=== PATIENT | female | born 1945 | race Caucasian/White ===

== ENCOUNTER → 2017-07-11 | Day surgery (SDC) | payer BC ==
[~2017-07-11] MED LIST: COZAAR25 MG PO; GLUCOSAMINE & C1 CAP PO; GLUCOSAMINE CH1 EAC1 PO; HYDROXYZINE HCL25 M1 PO; LASIX20 MG PO; LEVOTHYROXINE100 MCG PO; LORCET PLUS 7.1 EACH PO; NAPROXEN PO; NEURONTIN300 MG PO; PROBIOTIC1 EAC2 PO; PROBIOTIC1 EAC3 PO; PROTONIX PO
--- NOTE | ~2017-07-11 | OR ---
Unit #: [id number] #: [id number] Patient: MAIA SOMMER [id number] [address] [address] [id number] O MR#: [id number] NAME: MAIA SOMMER ROOM: Date of Procedure: 07/11/2017 Admission Date: 07/11/2017 Surgeon: Doe Faustin M.D. : 1945 Attending Physician: Doe Faustin M.D. Referring Physician: Doe Faustin M.D. Primary Care Physician: Lauren Figueroa M.D. OPERATIVE REPORT PREOPERATIVE DIAGNOSIS Left midshaft humerus fracture. POSTOPERATIVE DIAGNOSIS Left midshaft humerus fracture. PROCEDURE PERFORMED Open reduction and internal fixation of left humerus fracture. IMPLANTS Synthes 10-hole 4.5 mm LCDC plate, narrow. PRODUCTION LINE SOLDERER Radha Kaiser APRN, RNFA. ANESTHESIA General with regional nerve block. ESTIMATED BLOOD LOSS 100 mL. COMPLICATIONS None apparent. DRAINS None. SPECIMENS None. INDICATIONS FOR PROCEDURE Ms. Sommer is a 72-year-old female with a left displaced midshaft humerus fracture. She failed a trial of conservative treatment with a Dotson brace. She had an incomplete reduction, but more so continued pain and inability to tolerate wearing the brace. We discussed open reduction and internal fixation as an alternative and she elected to proceed. The risks, benefits, and alternatives were reviewed. DESCRIPTION OF PROCEDURE The patient was identified in the preoperative holding area. The operative site was marked. Preoperative antibiotics were administered. A regional block was performed. The patient was brought to the operating Unit #: [id number] #: [id number] Patient: MAIA SOMMER room and placed supine on the operating table. A general anesthetic was induced. The patient was positioned supine on the operative table with the arm out laterally on a radiolucent hand table. The head of the bed was elevated slightly. An incision was made over the anterolateral aspect of the humerus. Dissection was carried down to the subcutaneous tissues. The cephalic vein was visualized medial or ulnar to our incision. Dissection was carried down to the biceps brachii itself. This was then elevated medially exposing the underlying brachialis. The brachialis was divided in-line with its muscle fibers in an internervous plane. Dissection proximally was carried up to the inferior portion of the deltopectoral interval. This was exposed and a portion of the pectoralis was released as was the portion of the deltoid. These were tagged for later repair. The fracture site was identified and the fracture edges were cleaned. Periosteum was removed only at the fracture edges to confirm reduction. The fracture was reduced with a large lobster-claw clamp and held in place while a lag screw was placed from the lateral to medial cortex. This was a 3.5 mm lag screw. A 2.0 mm K-wire was placed here as well. The clamps were then removed and a plate applied in a neutralization fashion anteriorly. An 8-hole plate was somewhat short. We elected for a longer 10-hole plate with better working length. The plate was then secured both proximal and distal to the fracture. The plate was confirmed to be on bone to its proximal and distal extent. The plate was ultimately secured with 3 nonlocking fully-threaded 4.5 mm cortical screws in both proximal and distal aspects of the shaft. The arm was taken through range of motion and the repair was stable. The final intraoperative fluoroscopy images confirmed an anatomic reduction with satisfactory placement of the plate. The wound was then irrigated and closed in a layered fashion. The brachialis split was closed followed by closure of the deltoid back to one and another with #2 Ethibond. The biceps was then also sutured back laterally followed by closure of the subcutaneous tissues and skin ultimately with a running Monocryl. Steri-Strips and sterile dressings were applied. The patient was aroused from anesthesia. DISPOSITION Stable to the recovery room. Dictated by... Fito Wright/npuur TD: 07/12/2017 14:05 JOB #: [id number] Unit #: [id number] #: [id number] Patient: MAIA SOMMER OPERATIVE REPORT Page 1 of 1 X Doe Faustin MD X PROCEDURE OPERATIVE NOTE
--- NOTE | ~2017-07-11 | EKG ---
PATIENT: MAIA SOMMER UNIT #: [id number] Ventricular Rate: 71 BPM Atrial Rate: 71 BPM P-R Interval: 180 ms QRS Duration: 134 ms Q-T Interval: 432 ms QTC Calculation(Bezet): 469 ms P [place]: 8 degrees Calculated R [place]: 78 degrees Calculated T [place]: 28 degrees Diagnosis Line: Normal sinus rhythm Diagnosis Line: Right bundle branch block Diagnosis Line: Possible Inferior infarct (cited on or before Diagnosis Line: 28-JAN-2015) Diagnosis Line: Abnormal ECG Diagnosis Line: When compared with ECG of 28-JAN-2015 08:45, Diagnosis Line: No significant change was found Diagnosis Line: Confirmed by HUGH VERA MD ([id number]) on Diagnosis Line: 07/13/2017 10:50:02 AM INTERPRETING MD: CHUY OJEDA
--- NOTE | ~2017-07-11 | CR156 ---
[facility] A Service of [facility] & [facility] RADIOLOGY TEXT RESULTS PATIENT: MAIA SOMMER LOCATION: [facility] : [birth year] UNIT #: [id number] AGE: [address]: Doe Faustin MD SEX: F ORDER DR: [id number] [facility] [address] [place], [place] [address] [id number] O MR#: [id number] Acc #: [id number] NAME: MAIA SOMMER : 1945 SEX: F STUDY DATE/TIME: 07/11/2017 14:36 UNIT: [facility] ROOM: STUDY DESCRIPTION: CR Humerus Min 2 View Lt Attending Physician: Doe Faustin M.D. Referring Physician: Doe Faustin M.D. Ordering Physician: Doe Faustin M.D. Primary Care Physician: Lauren Figueroa M.D. MEDICAL IMAGING REPORT This report is preliminary unless electronic signature is present EXAM C-arm fluoroscopy with 4 permanent images of the left humerus, 07/11/2017. HISTORY ORIF, left humerus fracture. FINDINGS C-arm fluoroscopy was provided for use in the operating room. Four spot film radiographs of the left humerus were obtained in the anterior projection documenting placement of surgical plate and screws across the fracture. The bones appear in anatomic alignment. 25 seconds of fluoroscopy time was utilized. Dictated by... Doe Seo M.D. THIS IS AN ELECTRONICALLY VERIFIED REPORT Doe Seo M.D. at 07/13/2017 7:46 AM ENRIQUE/rasheed TD: 07/12/2017 08:24 JOB #: [id number] MEDICAL IMAGING REPORT Page 1 of 1 COPY
[2017-07-11 12:41] LABS: BASOPHIL% 0.3 % (0-2.5); EOSINOPHIL# 0.4 X10e3 (0-0.7); EOSINOPHIL% 7.2 % (0.0-7.0); HEMATOCRIT 42.3 % (35.0-45.0); HEMOGLOBIN 14.5 gm/dL (12.0-16.0); LYMPHOCYTE# 1.7 X10e3 (1.0-3.5); LYMPHOCYTE% 28.8 % (17.0-45.0); MEAN CELL VOLUME 95.8 FL (83-96); MEAN CORPUSCULAR HEMOGLOBIN 32.9 PG (28-34); MEAN CORPUSCULAR HGB CONC 34.3 g/dL (30-36); MEAN PLATELET VOLUME 8.2 FL (6.5-11.5); MONOCYTE# 0.7 X10e3 (0-1.0); MONOCYTE% 12.2 % (3.0-12.0); NEUTROPHIL# 3.1 X10e3 (1.5-7.1); NEUTROPHIL% 51.5 % (40-75); PLATELET COUNT 266 X10e3 (140-420); RED BLOOD COUNT 4.41 X10e (3.90-5.30); WHITE BLOOD COUNT 5.9 X10e3 (4.0-10.5)
[2017-07-11 12:45] LABS: DIFF IND NO
[2017-07-11 13:04] LABS: BUN/CREATININE RATIO 11.81; CALCIUM SERUM 9.2 mg/dL (8.4-10.2); CREATININE SERUM 1.1 mg/dL (0.6-1.4); GLOM FILT RATE Estimated 50.5 mL/min (>60); POTASSIUM 4.7 mmol/L (3.5-5.1)
== END | disposition home or self-care (01) ==
LOC: CSUR 11:45
PROVIDERS: Orthopaedic Surgery
DX: S42.322 Displaced transverse fracture of shaft of humerus, left arm (principal); E03.9 Hypothyroidism, unspecified; K21.9 Gastro-esophageal reflux disease without esophagitis; M17.10 Unilateral primary osteoarthritis, unspecified knee; Z87.891 Personal history of nicotine dependence; Z88.5 Allergy status to narcotic agent; Z98.890 Other specified postprocedural states; Z96.651 Presence of right artificial knee joint; X58.XXXS Exposure to other specified factors, sequela
CPT/HCPCS: 73060; 76001; 80048; 85025; 93005; C1713; J0690; J2405; J2795; J3010